=== PATIENT | male | born 1955 | race Caucasian/White ===

== ENCOUNTER 2017-05-19 19:54 | Emergency (ER) | payer OTHER ==
[~2017-05-19] VITALS: Ht 177.8 cm; Wt 77.1 kg
[2017-05-19 20:35] VITALS: BP 134/86
--- NOTE | 2017-05-19 21:07 | PHYS DOC ---
Adult General Chief Complaint Chief Complaint: LACERATION/AVULSION HPI HPI Patient is a 61 year old male who presents with left thumb laceration. Patient was making a hole in a metal can which cut him. He is right handed. Review of Systems Review of Systems Constitutional: Denies fever or chills [] Integument: left thumb laceration Neurologic: Denies headache, focal weakness or sensory changes [] Current Medications Current Medications Current Medications Medications (Trade) Dose Ordered Sig/Bienvenido Start Time Stop Time Status Last Admin Dose Admin Diphtheria/ Tetanus/Acell Pertussis (Boostrix) 0.5 ml ONCE ONCE 05/19/17 21:30 05/19/17 21:31 DC 05/19/17 21:24 0.5 ML Lidocaine/Sodium Bicarbonate (Buffered Lidocaine 1%) 20 ml 1X ONCE 05/19/17 21:30 05/19/17 21:31 DC 05/19/17 21:25 20 ML Allergies Allergies Allergies Coded Allergies Type Severity Reaction Last Updated Verified No Known Drug Allergies 05/19/17 No Physical Exam Physical Exam Constitutional: Well developed, well nourished, no acute distress, non-toxic appearance. [] Skin: Left medial thumb with a laceration approximately 5 cm long, there is no tendon involvement. Adequate flexion and extension of the left thumb. +2 left radial pulse. Adequate radial sensation to the left thumb. Cap refill less than 2 seconds the left thumb. Back: No tenderness, no CVA tenderness. [] Extremities: No tenderness, no cyanosis, no clubbing, ROM intact, no edema. [] Neurologic: Alert and oriented X 3, normal motor function, normal sensory function, no focal deficits noted. [] Psychologic: Affect normal, judgement normal, mood normal. [] EKG EKG [] Radiology/Procedures Radiology/Procedures Indication: Left thumb laceration Procedure: The patient was placed in the appropriate position and anesthesia around the laceration was 1% of buffered lidocaine. The area was then explored for foreign objects, none was found, the area was cleaned with 100 ml of NS and Betadine. The laceration was closed with 11 interrupted sutures using 5. 0 Ethilon. The wound was covered with pressure dressing. Total repaired wound length: Approximately 5 cm long Other Items: none The patient tolerated the procedure well Complications:none Course & Med Decision Making Course & Med Decision Making Pertinent Labs and Imaging studies reviewed. (See chart for details) Patient has left thumb laceration that was closed by me as noted in procedures. He was provided wound care instructions as well as return precautions. Tetanus was updated. Dragon Disclaimer Dragon Disclaimer This electronic medical record was generated, in whole or in part, using a voice recognition dictation system. Departure Departure Impression: Primary Impression: Laceration of left thumb Disposition: 01 HOME, SELF-CARE Condition: STABLE Referrals: MURPHY ORTIZ (PCP) Follow-up with your doctor or the emergency room in 7-10 days for suture removal Patient Instructions: Fingertip Laceration Additional Instructions: You were seen for left thumb laceration. Keep the area clean and dry. Apply Neosporin to the area twice a day. Monitor it for signs and symptoms of infection including but not limited to increased redness on the area, increased drainage from the area, yellow drainage from the area, warmth to the area. Follow-up with your doctor come back to the ED if they occur. Follow-up with your doctor or the emergency room in 7-10 days for suture removal Problem Qualifiers Primary Impression: Laceration of left thumb Encounter type: initial encounter Damage to nail status: without damage Foreign body presence: without foreign body Qualified Codes: S61.012A - Laceration without foreign body of left thumb without damage to nail, initial encounter DELFINA BARRY APRN May 19, 2017 21:07
[2017-05-19] MEDS ORDERED: LIDOCAINE 1% / SOD BICARB 8.4% 20 ML VIAL. IJ ONE (21:30)
[2017-05-19] MEDS ORDERED: DIPHTH,PERTUSS(ACELL),TET TOX 0.5 ML DISP.SYRIN. VAX IM ONE (21:30)
== END 2017-05-19 22:20 | disposition home or self-care (01) ==
LOC: ER 19:54
DX: S61.012A Laceration without foreign body of left thumb without damage to nail, initial encounter (principal); W26.8XXA Contact with other sharp object(s), not elsewhere classified, initial encounter; Y93.89 Activity, other specified; Y99.8 Other external cause status; Y92.89 Other specified places as the place of occurrence of the external cause
CPT/HCPCS: 12002; 90471; 90715; 99283-25